=== PATIENT | male | born 1990 | race Caucasian/White ===

== ENCOUNTER → 2023-07-21 | Outpatient (CLI) | payer BC ==
[~2023-07-21] MED LIST: AUGM875T28 PO; DEPA500T OR; IBUP80TA PO; NAPR-855; No Historical Meds; PERC5TAB12 PO; TRAZ50TA OR
== END ==
LOC: M LAB 10:55
PROVIDERS: ATTEND Registered Nurse Psychiatric/Mental Health
DX: F11.21 Opioid dependence, in remission (principal)